=== PATIENT | female | born 1955 | race African-American/Black ===

== ENCOUNTER 2020-12-10 12:30 | Outpatient (RCR) | payer OTHER, SELFPAY ==
--- NOTE | 2020-11-01 16:12 | PTOPEVAL ---
PHYSICAL THERAPY EVALUATION AND PLAN OF CARE 11-01-20 Thank you for referring Graciela Jay to [facility], for the diagnosis of B LE lymphedema. She is scheduled to be seen for therapy? 3 x/week for 4 weeks. Please review, sign, date and return this plan of care HARPER. I agree with and certify that the following plan of care is medically necessary. Referring Physician Date Referring Provider: Fortunato Woodson DPM *PT Outpatient Evaluation Document 11/01/20 15:10 SETH (Rec: 11/01/20 16:12 SETH [id number]) Past Medical History Source of Past Medical History Patient Neurological History Hx Cerebrovascular Accident (CVA) Yes: L side weakness, 2018 and 2019 Cardiovascular History Hx Hypertension Yes: meds Respiratory History Hx Other Respiratory Disorders Yes: SOB with exertion Gastrointestinal History Hx Obstructive Bowel Yes: surgery Hx Other Gastrointestinal Disorders Yes: have diarrhea/ constipation issues Genitourinary History Hx Kidney Stones Yes: surgery Musculoskeletal History Hx Back Pain Yes Endocrine History Hx Endocrine Disorders No Significant History Reproductive History Hx Section Yes Other History Hx Other Medical Conditions Yes: obesity Evaluation Information Problem Diagnosis lymphedema B legs Onset about one year Prior Level of Function Activity Level (Last 3 Months) Occupation not working Cooking Yes Cleaning No Laundry No Shopping No Driving No Home Setting Home Type House Living Situation Alone Support Available Local Family Support Mobility Assistive Devices (Used Last 3 Walker, Wheeled Months) Comments Additional Prior Level of Function local family assist with Comments cleaning, shopping, cooking; pt is indep with bathing, dressing Pain Assessment Timing of Pain Assessment Timing of Pain Assessment Assessment Pain Scale Pain Scale Used Numeric (1 - 10) Self Report Pain Assessment Bilateral Leg(s) Reported Pain Level 7 Pain Description Heavy Radicular Pain Location burning in L foot Pain Frequency Chronic,Continuous Other Pain Description R leg hurts and heavy; L lower leg pain and hurts Lowest Pain Intensity 6 Greatest Pain Intensity 9 Pain Aggravating Factors Exercise/Activity,Walking, W
--- NOTE | 2020-12-07 15:00 | PCPTNOTE ---
pt did not show for today's reeval; called pt and unable to leave a voice mail message due to mail box full
--- NOTE | 2020-12-10 12:57 | PCPTNOTE ---
Pt no show no call. Attempted to call , pt's phone mail was full. I called her sister's phone number and she stated she would call her and have her call us. I thanked her for doing this.
--- NOTE | 2021-01-02 10:09 | PCPTNOTE ---
Addendum entered by Mariana Monet, PT 01/16/21 16:22: At the last treatment session, on 11-23-20: her circumferential measurements, up from the bottom of the foot 60 cm: R 780.5 cm and L 735.0 cm; Original Note: PHYSICAL THERAPY DISCHARGE 01-02-21 Attending Provider: Dr. Fortunato Woodson Patient:Graciela Jay Date of :1955 Graciela has not returned for any further treatments since 11/23/2020, therefore she will be discharged at this time. Graciela has received 9 PT sessions, from November 01 to November 23, for the diagnosis of B LE lymphedema. She then stopped attending therapy, stated she was having pain in L groin. Thank you for referring Mrs. Jay to [facility]. Please review, sign, date and return this discharge summary HARPER. I have been updated about the patient's current status and I agree with discharge from the above service at this time. Referring Physician Date
== END 2021-01-03 17:29 | disposition home or self-care (01) ==
LOC: ANHPT 12:30
DX: M79.672 Pain in left foot (principal); R60.0 Localized edema
CPT/HCPCS: 29581; 97016; 97140; 97161